=== PATIENT | male | born 1945 | race Caucasian/White ===

== ENCOUNTER 2016-08-23 13:02 | Observation (INO) | payer MEDICARE, OTHER ==
[~2016-08-23 13:02] MED LIST: ACTIVASE50 MG IV; AIRET0.83 MG/ML AERO NEB; ALBUTEROL2.5 MG/0.1 IH; AMOX TR-K CLV1 EAC4 PO; AMOXICILLIN875 M1 PO; ARICEPT10 M2 PO; AUGMENTIN 875-1 EAC2 PO; B-12 DOTS500 MCG PO; B12 PO; CETIRIZINE HCL10 M1 PO; CLOBETASOL EMOL15 GM TP; CLOBETASOL MC; CLONAZEPAM2 MG PO; COLACE100 M1 PO; CORTEF10 M1 PO; COZAAR50 M1 PO; DIFLUCAN100 MG PO; DONEPEZIL HCL5 MG PO; DOXYCYCLINE MO100 M2 PO; DOXYCYCLINE MO100 MG PO; FLONASE16 G3; FLORINEF ACETA0.1 MG PO; FLUDROCORTISON0.1 M1 PO; FLUNISOLIDE25 M3; FLUNISOLIDE25 ML NS; GALANTAMINE HBR4 MG PO; GUAIFENESIN400 M1 PO; HUMALOG100 UNITS/ SC; HYDROCORTISONE10 M1 PO; IBUPROFEN800 MG PO; IPRATROPIUM BRO15 M1; KLONOPIN2 M1 PO; LEVAQUIN750 M1 PO; LEVAQUIN750 MG PO; LEVOTHROID112 MCG PO; LOSARTAN POTASS50 MG PO; LOVENOX40 MG/0.1 SQ; MELOXICAM15 M1 PO; METHADONE HCL10 M1 PO; METHADONE HCL10 MG PO; MIRALAX17 G2 PO; MIRALAX17 GM PO; MIRTAZAPINE45 M1 PO; MUCINEX600 M1 PO; NORCO 5-325 TA1 EACH PO; NORMAL SALINE 0.9% IV; PREDNISONE10 M1 PO; PREDNISONE10 MG PO; PREDNISONE20 M1 PO; PRILOSEC40 M1 PO; PRILOSEC40 MG PO; PROTONIX IV40 MG IV; PROTONIX40 M2 PO; PROVENTIL HFA6.7 G1 INH; REMERON45 M1 PO; RESTORIL15 MG PO; SALINE NASAL SP30 M1 NS; SINEMET 25-1001 EAC1 PO; SINEMET ER 25/11 TA1 PO; SODIUM CHLORIDE 0.9% IV; SPIRIVA18 MC1 IH; SPIRIVA18 MCG IH; SYMBICORT 160-1 PUFF INH; SYMBICORT 16010.2 GM IH; SYNTHROID137 MC1 PO; TRAZODONE HCL50 M1 PO; TRAZODONE50 MG PO; TRIPLE PASTE TP; TYLENOL325 M2 PO; VANCOMYCIN IV; VENLAFAXINE H37.5 M3 PO; VENLAFAXINE HCL75 M3 PO; VITAMIN D-32000 UNI3 PO; ZYRTEC10 MG PO; [UNRECOGNIZED DRUG - OTHER] MC
[2016-08-23] MEDS ORDERED: VENTOLIN HFA18 G2 INH (13:31)
[2016-08-23] MEDS ORDERED: SYMBICORT 160-1 PUFF INH (13:31)
[2016-08-23] MEDS ORDERED: VITAMIN D32000 UNI3 PO (13:32)
[2016-08-23] MEDS ORDERED: SINEMET 25-1001 EAC1 PO (13:32)
[2016-08-23] MEDS ORDERED: KLONOPIN1 M1 PO (13:33)
[2016-08-23] MEDS ORDERED: B-12500 MC1 PO (13:34)
[2016-08-23] MEDS ORDERED: SENEXON-S TABL1 EAC1 PO (13:34)
[2016-08-23] MEDS ORDERED: CYMBALTA20 M1 PO (13:35)
[2016-08-23] MEDS ORDERED: ARICEPT10 M2 PO (13:35)
[2016-08-23] MEDS ORDERED: LASIX20 M1 PO (13:36)
[2016-08-23] MEDS ORDERED: NEURONTIN300 M1 PO (13:36)
[2016-08-23] MEDS ORDERED: GUAIFENESIN400 M1 PO (13:36)
[2016-08-23] MEDS ORDERED: LEVAQUIN250 M3 PO (13:37)
[2016-08-23] MEDS ORDERED: HYDROCORTISONE10 M3 PO (13:37)
[2016-08-23] MEDS ORDERED: MELATONIN3 M4 PO (13:38)
[2016-08-23] MEDS ORDERED: SYNTHROID125 MC1 PO (13:38)
[2016-08-23] MEDS ORDERED: MORPHINE SU15 MG/TAB PO (13:40)
[2016-08-23] MEDS ORDERED: MS CONTIN30 M1 PO (13:40)
[2016-08-23] MEDS ORDERED: PROTONIX40 M2 PO (13:41)
[2016-08-23] MEDS ORDERED: POLYETHYLENE GL17 G1 PO (13:41)
[2016-08-23 13:42] LABS: BASO % 0.4 % (0-2); EOS % 1.8 % (0-7); EOSINOPHIL ABSOLUTE COUNT 0.2 tho/cmm (0.0-0.7); HCT-HEMATOCRIT 42.9 % (36.0-53.5); HGB-HEMOGLOBIN 13.7 gm/dl (13.5-17.0); IMMATURE GRANULOCYTES ABSOLUTE 0.03 tho/cmm (0-0.03); IMMATURE GRANULOCYTES PERCENT 0.3 % (0-0.3); LYMPH % 20.5 % (20-45); LYMPH ABSOLUTE COUNT 1.9 tho/cmm (0.8-4.5); MCH (MEAN CORPUSCULAR HGB) 28.7 pg (28.0-32.0); MCHC MEAN CORPUSCULAR HGB CONC 31.9 % (32.0-36.0); MCV (MEAN CELL VOLUME) 89.7 fl (82.0-96.0); MEAN PLATELET VOLUME 10.3 cmc (9.4-12.4); MONO % 8.9 % (0-12); MONOCYTE ABSOLUTE COUNT 0.8 tho/cmm (0.0-1.2); NEUTROPHIL ABSOLUTE COUNT 6.2 tho/cmm (1.6-8.0); NEUTROPHIL-AUTOMATED 6.2 tho/cmm (1.6-8.0); NEUTROPHILS % 68.1 % (40-80); PLATELET COUNT 430 tho/cmm (150-450); RED BLOOD COUNT 4.78 mil/cmm (4.40-5.70); RED CELL DISTRIBUTION WIDTH 14.6 % (12.4-16.4); WHITE BLOOD COUNT 9.1 tho/cmm (4.0-10.0)
[2016-08-23] MEDS ORDERED: SPIRIVA18 MC1 INH (13:42)
[2016-08-23] MEDS ORDERED: AYR SALINE NASA14 GM (13:44)
[2016-08-23] MEDS ORDERED: LIDODERM1 EACH TP (13:44)
[2016-08-23 13:57] LABS: ALB/GLOB RATIO 0.6 (0.8-2.0); ALBUMIN 3.6 g/dl (3.5-5.0); ALKALINE PHOSPHATASE 115 U/L (33-138); BILIRUBIN,TOTAL 0.6 mg/dl (0.0-1.5); BLOOD UREA NITROGEN 21 mg/dl (6-24); CALCIUM 9.4 mg/dl (8.5-10.5); CARBON DIOXIDE-VENOUS 33 mmol/L (22-32); CHLORIDE 101 mmol/l (96-110); CREATININE 1.25 mg/dl (0.60-1.30); GLUCOSE 112 mg/dL (70-110); LIPASE 149 U/L (73-393); SODIUM 141 mmol/L (135-145); eGFR VALUE FOR BLACK 67 mL/Min
[2016-08-23 13:58] LABS: ALT/SGPT <10 U/L (12-78); ANION GAP 11 mmol/L (0-20); AST/SGOT 25 U/L (10-40)
[2016-08-23 15:24] LABS: URINE BILIRUBIN NEGATIVE (NEG); URINE BLOOD NEGATIVE (NEG); URINE GLUCOSE (UA) NEGATIVE (NEG); URINE KETONE NEGATIVE (NEG); URINE NITRITE NEGATIVE (NEG); URINE PH 6.5 (5.0-8.0); URINE PROTEIN NEGATIVE (NEG); URINE SPECIFIC GRAVITY 1.005 (1.003-1.030)
[2016-08-23 15:25] LABS: URINE APPEARANCE CLEAR; URINE COLOR YELLOW; URINE LEUKOCYTE ESTERASE POSITIVE (NEG)
[2016-08-23 15:30] LABS: URINE EPITHELIAL CELLS RARE /[HPF] (0-10)
[2016-08-23 15:31] LABS: URINE RBC 0-2 /[HPF] (0-5)
[2016-08-24 05:23] LABS: BASO % 0.7 % (0-2); BASO ABSOLUTE COUNT 0.1 tho/cmm (0.0-0.2); EOS % 5.3 % (0-7); EOSINOPHIL ABSOLUTE COUNT 0.5 tho/cmm (0.0-0.7); HCT-HEMATOCRIT 41.4 % (36.0-53.5); IMMATURE GRANULOCYTES ABSOLUTE 0.02 tho/cmm (0-0.03); IMMATURE GRANULOCYTES PERCENT 0.2 % (0-0.3); LYMPH % 45.9 % (20-45); LYMPH ABSOLUTE COUNT 4.5 tho/cmm (0.8-4.5); MCH (MEAN CORPUSCULAR HGB) 28.4 pg (28.0-32.0); MCHC MEAN CORPUSCULAR HGB CONC 31.4 % (32.0-36.0); MCV (MEAN CELL VOLUME) 90.6 fl (82.0-96.0); MEAN PLATELET VOLUME 9.7 cmc (9.4-12.4); MONO % 10.8 % (0-12); MONOCYTE ABSOLUTE COUNT 1.1 tho/cmm (0.0-1.2); NEUTROPHIL ABSOLUTE COUNT 3.7 tho/cmm (1.6-8.0); NEUTROPHIL-AUTOMATED 3.7 tho/cmm (1.6-8.0); NEUTROPHILS % 37.1 % (40-80); PLATELET COUNT 363 tho/cmm (150-450); RED BLOOD COUNT 4.57 mil/cmm (4.40-5.70); RED CELL DISTRIBUTION WIDTH 14.8 % (12.4-16.4); WHITE BLOOD COUNT 9.8 tho/cmm (4.0-10.0)
[2016-08-24 05:33] LABS: ANION GAP 8 mmol/L (0-20); BLOOD UREA NITROGEN 18 mg/dl (6-24); CALCIUM 8.9 mg/dl (8.5-10.5); CARBON DIOXIDE-VENOUS 36 mmol/L (22-32); CHLORIDE 104 mmol/l (96-110); CREATININE 1.07 mg/dl (0.60-1.30); GLUCOSE 93 mg/dL (70-110); POTASSIUM 4.3 mmol/L (3.7-5.1); SODIUM 144 mmol/L (135-145); eGFR VALUE FOR BLACK 81 mL/Min
[2016-08-24] MEDS ORDERED: TYLENOL325 M2 PO (15:54)
[2016-08-24] MEDS ORDERED: XANAX0.25 M1 PO (15:58)
[2017-02-11] MEDS ORDERED: DOC-Q-LACE100 M2 PO (13:36)
[2017-02-11] MEDS ORDERED: ALBUTEROL2.5 MG/3 M NEB (14:08)
[2017-02-11] MEDS ORDERED: SENNA PLUS TAB1 EAC1 PO (14:09)
[2017-02-11] MEDS ORDERED: DEPAKOTE ER250 M1 PO (14:09)
[2017-02-11] MEDS ORDERED: EVZIO0.4 MG/0.4 IM (14:13)
[2017-02-11] MEDS ORDERED: MIRAPEX0.125 M1 PO (14:14)
[2017-02-11] MEDS ORDERED: NAPROXEN SODIU550 M2 PO (14:14)
[2017-02-11] MEDS ORDERED: LYRICA25 MG/CAP PO (14:15)
[2017-02-11] MEDS ORDERED: ROBAXIN-750750 M1 PO (14:23)
== END 2016-08-24 16:32 | disposition home health service (06) ==
LOC: EDMED 13:02 → EMR2 17:01 → CAR1 19:00
PROVIDERS: Emergency Medicine; Nurse Practitioner; ADMIT Hospitalist
DX: R11.2 Nausea with vomiting, unspecified (principal); R53.1 Weakness; R63.4 Abnormal weight loss; F03.90 Unspecified dementia, unspecified severity, without behavioral disturbance, psychotic disturbance, mood disturbance, and anxiety; J44.9 Chronic obstructive pulmonary disease, unspecified; G20 Parkinson's disease; F43.10 Post-traumatic stress disorder, unspecified; F41.8 Other specified anxiety disorders; G89.29 Other chronic pain; M54.5 Low back pain; E03.9 Hypothyroidism, unspecified; J96.12 Chronic respiratory failure with hypercapnia; Z79.899 Other long term (current) drug therapy; Z87.891 Personal history of nicotine dependence; Z90.49 Acquired absence of other specified parts of digestive tract; Z96.653 Presence of artificial knee joint, bilateral; Z96.611 Presence of right artificial shoulder joint; Z98.890 Other specified postprocedural states
CPT/HCPCS: G0378; G8978-GP-CJ; G8979-GP-CI; G8980-GP-CI; J2405; J7030; Q9967